=== PATIENT | female | born 1975 | race Caucasian/White ===

== ENCOUNTER 2017-05-28 16:14 | Emergency (ER) | payer SELFPAY ==
[~2017-05-28] VITALS: Ht 170.2 cm; Wt 95.3 kg
[2017-05-28] MEDS ORDERED: LORazepam INJ 2 MG/ML (ATIVAN) VIAL ONE ×5 (16:29→16:57)
[2017-05-28] MEDS ORDERED: NS IV 1000 ML 1,000 ML ONE (16:39)
[2017-05-28 16:46] LABS: BASOPHILS # (AUTO) 0.1 10^3/uL (0.0-0.1); BASOPHILS % (AUTO) 0 % (0-10); EOSINOPHILS # (AUTO) 0.2 10^3/uL (0.0-0.3); EOSINOPHILS % (AUTO) 1 % (0-10); LYMPHOCYTES # (AUTO) 7.7 X 10^3 (1.0-4.0); LYMPHOCYTES % (AUTO) 35 % (12-44); MEAN CORPUSCULAR HEMOGLOBIN 24 PG (25-34); MEAN CORPUSCULAR HGB CONC 30 G/DL (32-36); MEAN CORPUSCULAR VOLUME 80 FL (80-99); MEAN PLATELET VOLUME 10.8 FL (7.4-10.4); MONOCYTES # (AUTO) 1.4 X 10^3 (0.0-1.0); MONOCYTES % (AUTO) 7 % (0-12); NEUTROPHILS # (AUTO) 12.4 X 10^3 (1.8-7.8); NEUTROPHILS % (AUTO) 57 % (42-75); PLATELET COUNT 515 10^3/uL (130-400); RED BLOOD COUNT 5.47 10^6/uL (4.35-5.85); RED CELL DISTRIBUTION WIDTH 15.9 % (10.0-14.5); WHITE BLOOD COUNT 21.9 10^3/uL (4.3-11.0)
[2017-05-28 16:55] LABS: BAND NEUTROPHILS 1 %; BASOPHILS % (MANUAL) 1 %; EOSINOPHILS % (MANUAL) 3 %; LYMPHOCYTES % (MANUAL) 39 %; NEUTROPHILS % (MANUAL) 54 %
--- NOTE | 2017-05-28 16:58 | ED Neurological Problem ---
General Chief Complaint: Neurological Problems Stated Complaint: LOW BP, LEFT LEG NUMBNESS AND TWITCHING Source: family Exam Limitations: no limitations History of Present Illness Time seen by provider: 16:40 Initial Comments The patient is a 41-year-old white female who was having a grand mal seizure as I walked into the room. The had noticed that today she had been twitching prior to arrival. She has no previous history of seizure disorder. She has had no head injuries present or past. She is not known to be diabetic she does not take insulin. He reported that she stated she had a headache earlier today and that there was some blurring of vision. He believes that she has had borderline hypertension but has never been treated for this. He is not aware of fever Timing/Duration: 1-3 hours Severity: moderate Allergies and Home Medications Allergies Coded Allergies: No Known Drug Allergies (Unverified , 05/28/17) Constitutional: see HPI, other (patient is now postictal and unable to give any history.) Physical Exam Vital Signs Vital Sign - Last 12Hours 05/28/17 16:20 Temp 99.6 Pulse 116 Resp 20 B/P (MAP) 159/64 Pulse Ox 92 O2 Delivery Room Air Capillary Refill : General Appearance: other (post ictal with sonorous snoring) HEENT: PERRL/EOMI, normal ENT inspection Respiratory: chest non-tender, lungs clear, normal breath sounds, no respiratory distress, no accessory muscle use, respiratory distress Cardiovascular: normal peripheral pulses, regular rate, rhythm, no edema, no gallop, no JVD, no murmur Gastrointestinal: other (obese) Progress/Results/Core Measures Results/Orders Lab Results Laboratory Tests Test 05/28/17 16:22 05/28/17 16:25 Range/Units Glucometer 164 H 70-110 MG/DL White Blood Count 21.9 H 4.3-11.0 10^3/uL Red Blood Count 5.47 4.35-5.85 10^6/uL Hemoglobin 13.1 11.5-16.0 G/DL Hematocrit 44 35-52 % Mean Corpuscular Volume 80 80-99 FL Mean Corpuscular Hemoglobin 24 L 25-34 PG Mean Corpuscular Hemoglobin Concent 30 L 32-36 G/DL Red Cell Distribution Width 15.9 H 10.0-14.5 % Platelet Count 515 H 130-400 10^3/uL Mean Platelet Volume 10.8 H 7.4-10.4 FL Neutrophils (%) (Auto) 57 42-75 % Lymphocytes (%) (Auto) 35 12-44 % Monocytes (%) (Auto) 7 0-12 % Eosinophils (%) (Auto) 1 0-10 % Basophils (%) (Auto) 0 0-10 % Neutrophils # (Auto) 12.4 H 1.8-7.8 X 10^3 Lymphocytes # (Auto) 7.7 H 1.0-4.0 X 10^3 Monocytes # (Auto) 1.4 H 0.0-1.0 X 10^3 Eosinophils # (Auto) 0.2 0.0-0.3 10^3/uL Basophils # (Auto) 0.1 0.0-0.1 10^3/uL Neutrophils % (Manual) 54 % Lymphocytes % (Manual) 39 % Monocytes % (Manual) 2 % Eosinophils % (Manual) 3 % Basophils % (Manual) 1 % Band Neutrophils 1 % Blood Morphology Comment NORMAL Sodium Level 146 H 135-145 MMOL/L Potassium Level 3.6 3.6-5.0 MMOL/L Chloride Level 110 H 98-107 MMOL/L Carbon Dioxide Level 11 L 21-32 MMOL/L Anion Gap 25 H 5-14 MMOL/L Blood Urea Nitrogen 10 7-18 MG/DL Creatinine 0.98 0.60-1.30 MG/DL Estimat Glomerular Filtration Rate > 60 BUN/Creatinine Ratio 10 Glucose Level 155 H 70-105 MG/DL Calcium Level 9.9 8.5-10.1 MG/DL Total Bilirubin 0.6 0.1-1.0 MG/DL Aspartate Amino Transf (AST/SGOT) 11 5-34 U/L Alanine Aminotransferase (ALT/SGPT) 14 0-55 U/L Alkaline Phosphatase 73 40-136 U/L Total Protein 7.8 6.4-8.2 GM/DL Albumin 4.6 H 3.2-4.5 GM/DL My Orders Orders - MARIO RICK MD Lorazepam Injection (Ativan Injection) (05/28/17 16:29) Cbc With Automated Diff (05/28/17 16:39) Comprehensive Metabolic Panel (05/28/17 16:39) Ct Head Wo (05/28/17 16:39) Lorazepam Injection (Ativan Injection) (05/28/17 16:38) Ns Iv 1000 Ml (Sodium Chloride 0.9%) (05/28/17 16:39) Manual Differential (05/28/17 16:25) Lorazepam Injection (Ativan Injection) (05/28/17 16:46) Lorazepam Injection (Ativan Injection) (05/28/17 16:51) Lorazepam Injection (Ativan Injection) (05/28/17 16:57) Levetiracetam Injection (Keppra Injectio (05/28/17 17:47) Medications Given in ED Current Medications Medications Dose Ordered Sig/Kayleigh Route Start Time Stop Time Status Last Admin Dose Admin Lorazepam 2 mg STK-MED ONCE .ROUTE 05/28/17 16:38 05/28/17 16:46 DC 05/28/17 16:50 2 MG Lorazepam 2 mg STK-MED ONCE .ROUTE 05/28/17 16:46 05/28/17 16:52 DC 05/28/17 17:05 2 MG Lorazepam 2 mg STK-MED ONCE .ROUTE 05/28/17 16:51 05/28/17 16:58 DC 05/28/17 16:27 2 MG Lorazepam 2 mg STK-MED ONCE .ROUTE 05/28/17 16:57 05/28/17 17:03 DC 05/28/17 16:35 2 MG Vital Signs/I&O Vital Sign - Last 12Hours 05/28/17 16:20 Temp 99.6 Pulse 116 Resp 20 B/P (MAP) 159/64 Pulse Ox 92 O2 Delivery Room Air Departure Communication Progress Notes 611 I spoke to SAMAN ROGERS neurosurgeon at [facility]. She will accept the patient in transfer. By protocol the patient will go to the emergency room. [address] ANDERSON in the [facility] emergency room. He is informed that the patient will be coming imminently by ground. CT will be sent both by cloud and disc. Impression Impression: Primary Impression: intracranial mass Disposition: SHT-TRM HOSP Condition: Stable/Unchanged Transfer Transfer Notes See dismissal progress note Transfer Time: 17:58 Method of Transfer: EMS Departure-Patient Inst. Decision time for Depature: 17:58 MARIO RICK MD May 28, 2017 16:58
[2017-05-28 17:02] LABS: ALANINE AMINOTRANSFERASE 14 U/L (0-55); ALBUMIN 4.6 GM/DL (3.2-4.5); ANION GAP 25 MMOL/L (5-14); ASPARTATE AMINO TRANSFERASE 11 U/L (5-34); BILIRUBIN,TOTAL 0.6 MG/DL (0.1-1.0); BLOOD UREA NITROGEN 10 MG/DL (7-18); BUN/CREATININE RATIO 10; CALCIUM 9.9 MG/DL (8.5-10.1); CARBON DIOXIDE 11 MMOL/L (21-32); CHLORIDE 110 MMOL/L (98-107); CREATININE SERUM 0.98 MG/DL (0.60-1.30); GFR ESTIMATED > 60; GLUCOSE 155 MG/DL (70-105); POTASSIUM 3.6 MMOL/L (3.6-5.0); SODIUM 146 MMOL/L (135-145); TOTAL PROTEIN 7.8 GM/DL (6.4-8.2)
--- NOTE | 2017-05-28 17:28 | Diagnostic Imaging Report ---
PROCEDURE: CT head without contrast. TECHNIQUE: Multiple contiguous axial images were obtained through the brain without the use of intravenous contrast. INDICATION: Hypotension with left leg numbness and seizures. FINDINGS: There is a mass, posteriorly, on the right likely but inconclusively extra-axial. It is fairly hyperdense. While this likely reflects meningioma, other etiology could not be excluded and if this is not worked up recently from an outside facility, I would recommend multiplanar pre and post IV contrast-enhanced brain MRI. In axial plane, the mass measures 4.4 x 3.6 cm. It results in some right to left bowing of the posterior falx. Peripheral and caudal to the mass is a small amount of low density extra-axial fluid. No other space-occupying lesion is apparent at this nonenhanced exam. There is no hydrocephalus. No calvarial fracture deformity. Orbits and sinuses are unremarkable. IMPRESSION: Large mass in right hemisphere, posteriorly, with only mild deviation of the posterior falx. Extra-axial lesions are likely; however, multiplanar pre and post contrast enhanced brain MRI is recommended for its further evaluation. There is a trace amount of fluid peripheral to the structure but no substantial perilesional vasogenic edema. No other abnormality. Results discussed with the ER physician. Dictated by: Dictated on workstation # [id number]
[2017-05-28] MEDS ORDERED: LEVETIRACETAM 500 MG/5 ML (KEPPRA) VIAL IV ONE (17:47)
[2017-05-28] MEDS ORDERED: NS (IVPB) 100 ML ONE (17:49)
[2017-05-28] MEDS ORDERED: LEVETIRACETAM INJECTION 500 MG in NS (IVPB) 50 ML IV SCH (18:00)
[2017-05-28 18:25] VITALS: BP 103/44
== END 2017-05-28 18:25 | disposition short-term general hospital (02) ==
LOC: ER 16:19
DX: G93.89 Other specified disorders of brain (principal); G40.409 Other generalized epilepsy and epileptic syndromes, not intractable, without status epilepticus
CPT/HCPCS: 36415; 51702; 70450; 80053; 82962; 85007; 85027; 96374; 96375

== ENCOUNTER 2021-06-23 15:13 | Emergency (ER) | payer SELFPAY ==
[~2021-06-23] VITALS: Ht 175 cm; Wt 108.0 kg
[2021-06-23 16:27] LABS: BASOPHILS # (AUTO) 0.1 10^3/uL (0.0-0.1); BASOPHILS % (AUTO) 0 % (0-10); EOSINOPHILS % (AUTO) 0 % (0-10); HEMATOCRIT 39 % (35-52); HEMOGLOBIN 10.9 g/dL (11.5-16.0); LYMPHOCYTES # (AUTO) 2.6 10^3/uL (1.0-4.0); LYMPHOCYTES % (AUTO) 13 % (12-44); MEAN CORPUSCULAR HEMOGLOBIN 19 pg (25-34); MEAN CORPUSCULAR HGB CONC 28 g/dL (32-36); MEAN CORPUSCULAR VOLUME 68 fL (80-99); MEAN PLATELET VOLUME 9.8 fL (9.0-12.2); MONOCYTES # (AUTO) 1.4 10^3/uL (0.0-1.0); MONOCYTES % (AUTO) 7 % (0-12); NEUTROPHILS # (AUTO) 16.2 10^3/uL (1.8-7.8); NEUTROPHILS % (AUTO) 80 % (42-75); PLATELET COUNT 441 10^3/uL (130-400); WHITE BLOOD COUNT 20.4 10^3/uL (4.3-11.0)
[2021-06-23] MEDS ORDERED: LACTATED RINGERS 1,000 ML IV SCH ×2 (16:30→19:30)
[2021-06-23] MEDS ORDERED: LORazepam INJ 2 MG/ML (ATIVAN) VIAL IVP PRN (16:30)
[2021-06-23] MEDS ORDERED: ONDANSETRON 4 MG/2 ML (SDV) Z0FRAN IVP ONE (16:30)
[2021-06-23] MEDS ORDERED: KETOROLAC 30 MG/ML VIAL IVP ONE (16:30)
[2021-06-23 16:31] LABS: ALBUMIN 4.6 GM/DL (3.2-4.5); CHLORIDE 105 MMOL/L (98-107); POTASSIUM 3.6 MMOL/L (3.6-5.0); SODIUM 138 MMOL/L (135-145)
[2021-06-23 16:33] LABS: GLUCOSE 126 MG/DL (70-105)
--- NOTE | 2021-06-23 16:33 | ED Abdominal Pain ---
General Chief Complaint: Abdominal/GI Problems Stated Complaint: CHILLS / N/V/D / FATIGUE / ABD BACK PAIN Source of Information: Patient Exam Limitations: No Limitations History of Present Illness Date Seen by Provider: Jun 23, 2021 Time Seen by Provider: 16:32 Initial Comments To ER with chills nausea vomiting diarrhea fatigue and left lower quadrant abdominal pain since Monday. Timing/Duration: 1-2 Days Severity/Quality: Moderate Location: LLQ Radiation: No Radiation Activities at Onset: None Allergies and Home Medications Allergies Coded Allergies: No Known Drug Allergies (Unverified , 05/28/17) Patient Home Medication List Home Medication List Reviewed: Yes Review of Systems Review of Systems Constitutional: see HPI EENTM: No Symptoms Reported Respiratory: No Symptoms Reported Cardiovascular: No Symptoms Reported Gastrointestinal: See HPI, Abdominal Pain Genitourinary: No Symptoms Reported Musculoskeletal: no symptoms reported Skin: no symptoms reported Psychiatric/Neurological: No Symptoms Reported Endocrine: No Symptoms Reported Hematologic/Lymphatic: No Symptoms Reported Past [id number]-[id number] Hx Patient Social History Tobacco Use?: No Substance use?: Yes Substance type: Marijuana Substance frequency: Daily Alcohol Use?: No Pt feels they are or have been: No Immunizations Up To Date COVID19 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 oz. [id number]; BMI Method:Stated General Appearance: WD/WN, no apparent distress Neck: non-tender, full range of motion Respiratory: lungs clear, normal breath sounds, no respiratory distress, no accessory muscle use Cardiovascular: regular rate, rhythm, no murmur Gastrointestinal: normal bowel sounds, soft, tenderness Extremities: normal range of motion, non-tender Neurologic/Psychiatric: alert, normal mood/affect, oriented x 3 Skin: normal color, warm/dry Focused Exam Lactate Level 06/23/21 18:21: Lactic Acid Level 0.91 Lactic Acid Level Laboratory Tests Test 06/23/21 18:21 Lactic Acid Level 0.91 MMOL/L (0.50-2.00) Progress/Results/Core Measures Results/Orders Lab Results Laboratory Tests Test 06/23/21 15:55 06/23/21 16:00 06/23/21 17:26 06/23/21 18:21 Range/Units White Blood Count 20.4 H 4.3-11.0 10^3/uL Red Blood Count 5.70 H 3.80-5.11 10^6/uL Hemoglobin 10.9 L 11.5-16.0 g/dL Hematocrit 39 35-52 % Mean Corpuscular Volume 68 L 80-99 fL Mean Corpuscular Hemoglobin 19 L 25-34 pg Mean Corpuscular Hemoglobin Concent 28 L 32-36 g/dL Red Cell Distribution Width 18.3 H 10.0-14.5 % Platelet Count 441 H 130-400 10^3/uL Mean Platelet Volume 9.8 9.0-12.2 fL Immature Granulocyte % (Auto) 1 % Neutrophils (%) (Auto) 80 H 42-75 % Lymphocytes (%) (Auto) 13 12-44 % Monocytes (%) (Auto) 7 0-12 % Eosinophils (%) (Auto) 0 0-10 % Basophils (%) (Auto) 0 0-10 % Neutrophils # (Auto) 16.2 H 1.8-7.8 10^3/uL Lymphocytes # (Auto) 2.6 1.0-4.0 10^3/uL Monocytes # (Auto) 1.4 H 0.0-1.0 10^3/uL Eosinophils # (Auto) 0.0 0.0-0.3 10^3/uL Basophils # (Auto) 0.1 0.0-0.1 10^3/uL Immature Granulocyte # (Auto) 0.1 0.0-0.1 10^3/uL Neutrophils % (Manual) 83 % Lymphocytes % (Manual) 10 % Monocytes % (Manual) 7 % Eosinophils % (Manual) 0 % Basophils % (Manual) 0 % Band Neutrophils 0 % Polychromasia SLIGHT Hypochromasia MODERATE Anisocytosis SLIGHT Macrocytosis SLIGHT Elliptocytes SLIGHT Sodium Level 138 135-145 MMOL/L Potassium Level 3.6 3.6-5.0 MMOL/L Chloride Level 105 98-107 MMOL/L Carbon Dioxide Level 19 L 21-32 MMOL/L Anion Gap 14 5-14 MMOL/L Blood Urea Nitrogen 11 7-18 MG/DL Creatinine 0.87 0.60-1.30 MG/DL Estimat Glomerular Filtration Rate 71 BUN/Creatinine Ratio 13 Glucose Level 126 H 70-105 MG/DL Calcium Level 9.7 8.5-10.1 MG/DL Corrected Calcium 8.5-10.1 MG/DL Total Bilirubin 0.7 0.1-1.0 MG/DL Aspartate Amino Transf (AST/SGOT) 14 5-34 U/L Alanine Aminotransferase (ALT/SGPT) 14 0-55 U/L Alkaline Phosphatase 72 40-136 U/L Total Protein 8.0 6.4-8.2 GM/DL Albumin 4.6 H 3.2-4.5 GM/DL Influenza Type A (RT-PCR) Not Detected Not Detecte Influenza Type B (RT-PCR) Not Detected Not Detecte SARS-CoV-2 RNA (RT-PCR) Not Detected Not Detecte Urine Color YELLOW Urine Clarity SL CLOUDY Urine pH 6.0 5-9 Urine Specific [place] 1.025 H 1.016-1.022 Urine Protein 2+ H NEGATIVE Urine Glucose (UA) NEGATIVE NEGATIVE Urine Ketones 1+ H NEGATIVE Urine Nitrite NEGATIVE NEGATIVE Urine Bilirubin 1+ H NEGATIVE Urine Urobilinogen 0.2 < = 1.0 MG/DL Urine Leukocyte Esterase NEGATIVE NEGATIVE Urine RBC (Auto) NEGATIVE NEGATIVE Urine RBC NONE /HPF Urine WBC 2-5 /HPF Urine Squamous Epithelial Cells 0-2 /HPF Urine Crystals NONE /LPF Urine Bacteria MODERATE H /HPF Urine Casts PRESENT /LPF Urine Hyaline Casts RARE /LPF Urine Mucus MODERATE H /LPF Urine Culture Indicated YES Lactic Acid Level 0.91 0.50-2.00 MMOL/L My Orders Orders - MULU ESPITIA VOICE OVER ANNOUNCER Cbc With Automated Diff (06/23/21 16:16) Comprehensive Metabolic Panel (06/23/21 16:16) Ed Iv/Invasive Line Start (06/23/21 16:16) Manual Differential (06/23/21 15:55) Ketorolac Injection (Toradol Injection) (06/23/21 16:30) Ondansetron Injection (Zofran Injectio (06/23/21 16:30) Lactated Ringers (Lr 1000 Ml Iv Solution (06/23/21 16:30) Lorazepam Injection (Ativan Injection) (06/23/21 16:30) Ct Abdomen/Pelvis W (06/23/21 16:33) Blood Culture (06/23/21 16:33) Lactic Acid Analyzer (06/23/21 16:33) Iohexol Injection (Omnipaque 350 Mg/Ml 1 (06/23/21 17:45) Received Contrast (Hold Metformin- Contr (06/23/21 17:45) Ns (Ivpb) (Sodium Chloride 0.9% Ivpb Bag (06/23/21 17:45) Ceftriaxone (Rocephin) (06/23/21 19:00) Metronidazole Tablet (Flagyl Tablet) (06/23/21 19:00) Rx-Ondansetron Po (Rx-Zofran Po) (06/23/21 19:06) Rx-Lorazepam (Rx-Ativan) (06/23/21 19:06) Ciprofloxacin Tablet (Cipro Tablet) (06/23/21 19:15) Medications Given in ED Current Medications Medications Dose Ordered Sig/Kayleigh Route Start Time Stop Time Status Last Admin Dose Admin Ceftriaxone Sodium 2000 mg/ Sterile Water 20 ml @ 240 mls/hr ONCE ONCE IV 06/23/21 19:00 06/23/21 19:04 DC 06/23/21 19:09 240 MLS/HR Iohexol 100 ml ONCE ONCE IV 06/23/21 17:45 06/23/21 17:46 DC 06/23/21 17:45 100 ML Ketorolac Tromethamine 15 mg ONCE ONCE IVP 06/23/21 16:30 06/23/21 16:32 DC 06/23/21 17:29 15 MG Lorazepam 0.5 mg ONCE PRN IVP 06/23/21 16:30 06/23/21 17:30 0.5 MG Metronidazole 500 mg ONCE ONCE PO 06/23/21 19:00 06/23/21 19:01 DC 06/23/21 19:09 500 MG Ondansetron HCl 4 mg ONCE ONCE IVP 06/23/21 16:30 06/23/21 16:32 DC 06/23/21 17:30 4 MG Sodium Chloride 100 ml ONCE ONCE IV 06/23/21 17:45 06/23/21 17:46 DC 06/23/21 17:45 80 ML Vital Signs/I&O 06/23/21 15:45 Temp 36.3 Pulse 130 Resp 19 B/P (MAP) 140/82 (101) Pulse Ox 98 Diagnostic Imaging Diagonstic Imaging: CT Comments NAME: ZEYNEP METZGER [facility] REC#: [id number] PT STATUS: REG ER : 1975 PHYSICIAN: MULU ESPITIA VOICE OVER ANNOUNCER ADMIT DATE: 06/23/21/ER Draft Date of Exam:06/23/21 CT ABDOMEN/PELVIS W PROCEDURE: CT abdomen and pelvis with contrast. TECHNIQUE: Multiple contiguous axial images were obtained through the abdomen and pelvis after administration of intravenous contrast. Auto Exposure Controls were utilized during the CT exam to meet ALARA standards for radiation dose reduction. All CT scans use one or more of the following dose optimizing techniques: automated exposure control, MA and/or KvP adjustment based on patient size and exam type or iterative reconstruction. DATE: June 23, 2021. COMPARISON: None. INDICATION: 45-year-old female, left lower quadrant abdominal pain. Nausea, vomiting, diarrhea. FINDINGS: The visualized portions of the lung bases are clear. The heart is not enlarged. There is no pericardial effusion. The liver is unremarkable in size and contour. There is no identified liver lesion. The main, right and left portal veins are patent. The gallbladder is unremarkable. There is no intrahepatic or extrahepatic bile duct dilation. The main pancreatic duct is not abnormally dilated. Unremarkable appearance of the pancreatic parenchyma. The spleen is not enlarged. The adrenal glands are unremarkable. Unremarkable appearance of the renal parenchyma. The urinary collecting systems are not distended. There is no identified renal or ureteral stone. Urinary bladder is collapsed and not well evaluated. There is abnormal wall thickening at the level of the proximal sigmoid colon in an area of diverticulosis with adjacent inflammatory stranding and no pericolonic lymph node. This is most consistent with acute diverticulitis in the appropriate clinical scenario. The intestinal tract is not distended. There is no evidence of acute appendicitis. There is no free intraperitoneal air. There is no drainable fluid collection. There is no sizable volume free pelvic fluid. There is no identified abnormally enlarged lymph node in the abdomen or pelvis meeting CT size criteria for adenopathy. There are degenerative changes of the spine. There is no identified acute bony abnormality. IMPRESSION: CT abdomen and pelvis: 1. Findings most consistent with acute diverticulitis at the level of the proximal sigmoid colon without evidence of perforation or abscess. Dictated on workstation # [id number] Dict: 06/23/21 180 Trans: 06/23/21 181 [facility] [id number] Interpreted by: KT CAAL MD Electronically signed by: Departure Communication (Admissions) 1908-nausea is better, less anxious. I suspect her leukocytosis and tachycardia are secondary to volume depletion and the tachycardia secondary to volume depletion plus anxiety. Her blood pressure is fine lactic acid is normal. I think as long as her nausea is controlled she can go home to take oral antibiotics clear liquid diet for 24 to 48 hours. I spoke with Dr. Garcia and he agrees. Impression Primary Impression: Diverticulitis of intestine Disposition: HOME, SELF-CARE Condition: Stable Departure-Patient Inst. Decision time for Depature: 19:10 Referrals: NO,LOCAL PHYSICIAN (PCP/Family) Primary Care Physician Patient Instructions: Diverticulitis, Constipation, Adult (DC) Add. Discharge Instructions: 1. Clear liquids for the next 24 to 48 hours. Return to ER if you have vomiting that prevents you from taking the oral antibiotics, fevers, worsening pain. Otherwise follow-up with your family doctor within 1 to 2 weeks for recheck All discharge instructions reviewed with patient and/or family. Voiced understanding. Scripts Ondansetron (Ondansetron Odt) 8 Mg Tab.rapdis 8 MG PO Q6H PRN for NAUSEA/VOMITING, #10 TAB Prov: MULU ESPITIA VOICE OVER ANNOUNCER 06/23/21 Metronidazole (Flagyl) 500 Mg Tablet 500 MG PO TID, #21 TAB Prov: MULU ESPITIA VOICE OVER ANNOUNCER 06/23/21 Ciprofloxacin HCl (Ciprofloxacin HCl) 500 Mg Tablet 500 MG PO BID, #14 TAB Prov: MULU ESPITIA VOICE OVER ANNOUNCER 06/23/21 MULU ESPITIA VOICE OVER ANNOUNCER Jun 23, 2021 16:33
[2021-06-23 16:34] LABS: CARBON DIOXIDE 19 MMOL/L (21-32)
[2021-06-23 16:35] LABS: BILIRUBIN,TOTAL 0.7 MG/DL (0.1-1.0)
[2021-06-23 16:37] LABS: ALKALINE PHOSPHATASE 72 U/L (40-136); CREATININE SERUM 0.87 MG/DL (0.60-1.30); GFR ESTIMATED 71
[2021-06-23 16:38] LABS: BUN/CREATININE RATIO 13
[2021-06-23 16:40] LABS: ALANINE AMINOTRANSFERASE 14 U/L (0-55)
[2021-06-23 16:43] LABS: BAND NEUTROPHILS 0 %; LYMPHOCYTES % (MANUAL) 10 %; NEUTROPHILS % (MANUAL) 83 %
[2021-06-23 16:44] LABS: ANISOCYTOSIS SLIGHT; BASOPHILS % (MANUAL) 0 %; ELLIPT/OVALOCYTES SLIGHT; EOSINOPHILS % (MANUAL) 0 %; HYPOCHROMASIA MODERATE; MONOCYTES % (MANUAL) 7 %; POLYCHROMASIA SLIGHT
[2021-06-23 17:09] LABS: CALCIUM 9.7 MG/DL (8.5-10.1)
[2021-06-23 17:38] LABS: BILIRUBIN,URINE 1+ (NEGATIVE); CLARITY,URINE SL CLOUDY; COLOR,URINE YELLOW; GLUCOSE, URINE (UA) NEGATIVE (NEGATIVE); KETONES,URINE 1+ (NEGATIVE); LEUKOCYTE ESTERASE ,URINE NEGATIVE (NEGATIVE); NITRITE,URINE NEGATIVE (NEGATIVE); PROTEIN,URINE 2+ (NEGATIVE)
[2021-06-23 17:45] LABS: BACTERIA,URINE MODERATE /HPF; HYALINE CASTS, URINE RARE /LPF; SQUAMOUS EPITHELIAL CELL,UR 0-2 /HPF
[2021-06-23] MEDS ORDERED: IOHEXOL 350 MG/ML 100 ML (OMNIPAQUE 350) VIAL IV ONE (17:45)
[2021-06-23] MEDS ORDERED: NS 100 ML (IVPB) BAG IV ONE (17:45)
[2021-06-23] MEDS ORDERED: HOLD METFORMIN - RECEIVED CONTRAST 20 ML VIAL IV SCH (17:45)
--- NOTE | 2021-06-23 18:14 | Diagnostic Imaging Report ---
PROCEDURE: CT abdomen and pelvis with contrast. TECHNIQUE: Multiple contiguous axial images were obtained through the abdomen and pelvis after administration of intravenous contrast. Auto Exposure Controls were utilized during the CT exam to meet ALARA standards for radiation dose reduction. All CT scans use one or more of the following dose optimizing techniques: automated exposure control, MA and/or KvP adjustment based on patient size and exam type or iterative reconstruction. DATE: June 23, 2021. COMPARISON: None. INDICATION: 45-year-old female, left lower quadrant abdominal pain. Nausea, vomiting, diarrhea. FINDINGS: The visualized portions of the lung bases are clear. The heart is not enlarged. There is no pericardial effusion. The liver is unremarkable in size and contour. There is no identified liver lesion. The main, right and left portal veins are patent. The gallbladder is unremarkable. There is no intrahepatic or extrahepatic bile duct dilation. The main pancreatic duct is not abnormally dilated. Unremarkable appearance of the pancreatic parenchyma. The spleen is not enlarged. The adrenal glands are unremarkable. Unremarkable appearance of the renal parenchyma. The urinary collecting systems are not distended. There is no identified renal or ureteral stone. Urinary bladder is collapsed and not well evaluated. There is abnormal wall thickening at the level of the proximal sigmoid colon in an area of diverticulosis with adjacent inflammatory stranding and no pericolonic lymph node. This is most consistent with acute diverticulitis in the appropriate clinical scenario. The intestinal tract is not distended. There is no evidence of acute appendicitis. There is no free intraperitoneal air. There is no drainable fluid collection. There is no sizable volume free pelvic fluid. There is no identified abnormally enlarged lymph node in the abdomen or pelvis meeting CT size criteria for adenopathy. There are degenerative changes of the spine. There is no identified acute bony abnormality. IMPRESSION: CT abdomen and pelvis: 1. Findings most consistent with acute diverticulitis at the level of the proximal sigmoid colon without evidence of perforation or abscess. Dictated by: Dictated on workstation # [id number]
[2021-06-23] MEDS ORDERED: cefTRIAXone 2,000 MG in WATER (STERILE) FOR INJECTION 20 ML IV ONE (19:00)
[2021-06-23] MEDS ORDERED: metroNIDAZOLE 500 MG (FLAGYL) TAB PO ONE (19:00)
[2021-06-23] MEDS ORDERED: RX-LORAZEPAM (ATIVAN) 0.5 MG TAB PPK#4 PO STA (19:06)
[2021-06-23] MEDS ORDERED: RX-ONDANSETRON 4 MG ODT (ZOFRAN) PPK #4 PO STA (19:06)
[2021-06-23] MEDS ORDERED: CIPR500T5 PO (19:14)
[2021-06-23] MEDS ORDERED: ONDA8TAB13 PO (19:14)
[2021-06-23] MEDS ORDERED: METR500T PO (19:14)
[2021-06-23] MEDS ORDERED: CIPROFLOXACIN 500 MG (CIPRO) TABLET PO SCH (19:15)
[2021-06-23 20:57] VITALS: BP 137/90
== END 2021-06-23 20:54 | disposition home or self-care (01) ==
LOC: EDUNIT# 15:13 → ER 15:16
DX: K57.32 Diverticulitis of large intestine without perforation or abscess without bleeding (principal); Z20.822 Contact with and (suspected) exposure to COVID-19
CPT/HCPCS: 36415; 74177; 80053; 81000; 83605; 85007; 85027; 87040; 87088; 87636